=== PATIENT | male | born 1970 | race Caucasian/White ===

== ENCOUNTER 2017-10-01 02:06 | Emergency (ER) | payer BC, OTHER ==
[~2017-10-01] VITALS: Ht 190.5 cm; Wt 117.9 kg
[2017-10-01 02:15] VITALS: TEMP 36.8; Ht 190.5 cm; Wt 117.9 kg
[2017-10-01] MEDS ORDERED: OXCA300T PO (02:40)
[2017-10-01] MEDS ORDERED: EFAVTAB PO (03:07)
[2017-10-01 03:19] LABS: BASO % 0.5 %; BASO ABS # 0.03 K/uL (0-0.2); COMPLETE YES; HEMATOCRIT 42.9 % (42-52); IG% 0.2 %; LYMPH % 22.9 %; LYMPH ABS # 1.37 K/uL (1.2-3.4); MEAN CELL VOLUME 91.9 fL (80-100); MEAN CORPUSCULAR HEMOGLOBIN 32.5 pg (25-34); MEAN CORPUSCULAR HGB CONC 35.4 g/dl (32-36); MEAN PLATELET VOLUME 11.1 fL (7.4-10.4); MONO % 12.5 %; NEUT % 62.9 %; PLATELET COUNT 129 K/uL (130-400); RED BLOOD COUNT 4.67 M/uL (4.7-6.1); WHITE BLOOD COUNT 5.98 K/uL (4.8-10.8)
[2017-10-01 03:43] LABS: ALT/SGPT 79 U/L (12-78); AST/SGOT 54 U/L (15-37); BLOOD UREA NITROGEN 13 mg/dl (7-18); BUN/CREATININE RATIO 10.2 (10-20); CALCIUM 8.5 mg/dl (8.5-10.1); CARBON DIOXIDE 23 mmol/L (21-32); CHLORIDE 105 mmol/L (98-107); CREATININE 1.26 mg/dl (0.60-1.40); GLUCOSE 122 mg/dl (70-99); POTASSIUM 3.6 mmol/L (3.5-5.1); SODIUM 135 mmol/L (136-145)
[2017-10-01 03:48] LABS: ALB/GLOB RATIO 0.8 (0.9-2); ALKALINE PHOSPHATASE 58 U/L (45-117)
[2017-10-01] MEDS ORDERED: KETOROLAC TROMETHAMINE 30 MG/ML VIAL IV STA (06:09)
[2017-10-01] MEDS ORDERED: DICYCLOMINE HCL 20 MG TAB PO STA (06:10)
[2017-10-01] MEDS ORDERED: DICYCLOMINE HCL 10 MG CAP ONE (06:20)
--- NOTE | 2017-10-01 06:29 | EMERGENCY ROOM VISIT NOTE ---
History Report prepared by Lianne: Jaelyn Armstrong Under the Supervision of: Dr. Charla Sanders D.O. First contact with patient: 02:31 Chief Complaint: ABDOMINAL PAIN Stated Complaint: STOMACH PAIN,NO BOWEL MOVEMENT FOR A FEW DAYS Nursing Triage Summary: Patient ambulatory to triage with an upright and steady gait, states "Last weekend, I got sick with what I thought was the flu. I had fatigue and a little bit of stomach pain. I have noticed it is still hanging around. I realized, about 2 days ago, I am having a hard time going to the bathroom - both ways. I have a constant burning pain in my stomach." Patient reports nausea; vomiting last week with initial onset. Patient reports last BM was Tuesday or Tuesday of this week. No blood noted. Patient denies any blood in the urine. Patient reports a significant change in appetite. History of Present Illness The patient is a 47 year old male who presents to the Emergency Room with complaints of persistent abdominal pain starting yesterday. The pain is across his lower abdomen. The pain seems to worsen when he drinks. He has been feeling bloated when he drinks water. The patient started getting sick 1 week ago. He woke up in the middle of the night 1 week ago with vomiting. He has been feeling nauseous and fatigued. He called off work 5 days ago. He notes that he has had a decreased appetite and has not been eating very much over the past week. For the last couple of days, he has hardly been going to the bathroom. His last bowel movement was 4 days ago. He tried taking a stool softener today to no significant relief. He usually has a bowel movement daily. He noticed that his urine was dark 3-4 days ago. He has been struggling to urinate for the past 2 days. He has been getting chills intermittently. He has never had these symptoms before. He denies any fever, cough, rhinorrhea, or sore throat. He notes that he has been drinking protein shakes for the past week. He denies any other dietary changes. He denies any recent travel. He is on Atripla. He denies any medication changes. He denies any history of GI problems, heart problems, kidney problems, or abdominal surgeries. He lives alone. He denies any sick contacts. Source of History: patient Onset: yesterday Position: abdomen (lower) Quality: other (pain) Timing: other (persistent) Modifying Factors (Worsening): drinking Associated Symptoms: + nausea, + vomiting, + urinary symptoms, + fatigue, No fevers, No sorethroat, No cough Note: Pt reports bloating, decreased appetite, constipation. Pt denies rhinorrhea. Review of Systems See HPI for pertinent positives & negatives. A total of 10 systems reviewed and were otherwise negative. Past Medical & Surgical Medical Problems: (1) HIV (human immunodeficiency virus infection) Family History No pertinent family history stated. Social History Smoking Status: Never Smoker Housing Status: lives alone Occupation Status: employed Current/Historical Medications Scheduled Oigufxktu-Mlmhtheuyhfve-Xxwbsv (Atripla), 1 TAB PO HS Allergies Coded Allergies: No Known Allergies (Unverified , 10/01/17) Physical Exam Vital Signs Date Time Temp Pulse Resp B/P (MAP) Pulse Ox O2 Delivery O2 Flow Rate FiO2 10/01/17 06:42 66 18 134/90 97 10/01/17 06:26 66 18 134/90 97 Room Air 10/01/17 04:35 75 16 133/92 96 Room Air 10/01/17 02:15 36.8 92 18 131/89 95 Room Air Physical Exam GENERAL: alert, well appearing, well nourished, no distress, non-toxic EYE EXAM: normal conjunctiva, PERRL and EOM's grossly intact OROPHARYNX: no exudate, no erythema, lips, buccal mucosa, and tongue normal and mucous membranes are moist NECK: supple, no nuchal rigidity, no adenopathy, non-tender LUNGS: Clear to auscultation. Normal chest wall mechanics HEART: no murmurs, S1 normal and S2 normal ABDOMEN: abdomen soft, mild lower abdominal discomfort with palpation, normo- active bowel sounds, no masses, no organomegaly, no rebound or guarding. BACK: Back is symmetrical on inspection and there is no deformity, no midline tenderness, no CVA tenderness. SKIN: no rashes and no bruising UPPER EXTREMITIES: upper extremities are grossly normal. LOWER EXTREMITIES: No pitting edema. NEURO EXAM: Normal sensorium, cranial nerves II-XII grossly intact, normal speech, no gross weakness of arms, no gross weakness of legs. Medical Decision & Procedures ER Provider Diagnostic Interpretation: X-ray: I interpreted the following studies. Chest: A two view study of the chest was reviewed and was negative for cardiomegaly, focal infiltrate, effusion, or wide mediastinum. Abdomen: Scattered stool and air. No definite SBO. No free air. Radiology results have been interpreted by the [facility] radiologist and reviewed by me. US RUQ: Cholelithiasis. No significant gallbladder wall thickening. Normal caliber common bile duct. Negative sonographic Winslow sign. Enlarged slightly echogenic liver, possible fatty infiltration or other etiology. Pancreas not visualized. Laboratory Results 10/01/17 03:09 Red Blood Count 4.67, Mean Corpuscular Volume 91.9, Mean Corpuscular Hemoglobin 32.5, Mean Corpuscular Hemoglobin Concent 35.4, Mean Platelet Volume 11.1, Neutrophils (%) (Auto) 62.9, Lymphocytes (%) (Auto) 22.9, Monocytes (%) (Auto) 12.5, Eosinophils (%) (Auto) 1.0, Basophils (%) (Auto) 0.5, Neutrophils # (Auto ) 3.76, Lymphocytes # (Auto) 1.37, Monocytes # (Auto) 0.75, Eosinophils # (Auto ) 0.06, Basophils # (Auto) 0.03 10/01/17 03:09 Test 10/01/17 03:09 White Blood Count 5.98 K/uL (4.8-10.8) Red Blood Count 4.67 M/uL (4.7-6.1) Hemoglobin 15.2 g/dL (14.0-18.0) Hematocrit 42.9 % (42-52) Mean Corpuscular Volume 91.9 fL (80-100) Mean Corpuscular Hemoglobin 32.5 pg (25-34) Mean Corpuscular Hemoglobin Concent 35.4 g/dl (32-36) Platelet Count 129 K/uL (130-400) Mean Platelet Volume 11.1 fL (7.4-10.4) Neutrophils (%) (Auto) 62.9 % Lymphocytes (%) (Auto) 22.9 % Monocytes (%) (Auto) 12.5 % Eosinophils (%) (Auto) 1.0 % Basophils (%) (Auto) 0.5 % Neutrophils # (Auto) 3.76 K/uL (1.4-6.5) Lymphocytes # (Auto) 1.37 K/uL (1.2-3.4) Monocytes # (Auto) 0.75 K/uL (0.11-0.59) Eosinophils # (Auto) 0.06 K/uL (0-0.5) Basophils # (Auto) 0.03 K/uL (0-0.2) RDW Standard Deviation 42.7 fL (36.4-46.3) RDW Coefficient of Variation 12.6 % (11.5-14.5) Immature Granulocyte % (Auto) 0.2 % Immature Granulocyte # (Auto) 0.01 K/uL (0.00-0.02) Anion Gap 7.0 mmol/L (3-11) Est Creatinine Clear Calc Drug Dose 101.4 ml/min Estimated GFR () 78.8 Estimated GFR (Non- 68.0 BUN/Creatinine Ratio 10.2 (10-20) Lactic Acid Level 0.7 mmol/L (0.4-2.0) Calcium Level 8.5 mg/dl (8.5-10.1) Total Bilirubin 0.5 mg/dl (0.2-1) Aspartate Amino Transf (AST/SGOT) 54 U/L (15-37) Alanine Aminotransferase (ALT/SGPT) 79 U/L (12-78) Alkaline Phosphatase 58 U/L (45-117) Troponin I < 0.015 ng/ml (0-0.045) Total Protein 7.5 gm/dl (6.4-8.2) Albumin 3.3 gm/dl (3.4-5.0) Globulin 4.2 gm/dl (2.5-4.0) Albumin/Globulin Ratio 0.8 (0.9-2) Lipase 183 U/L (73-393) Laboratory results per my review. Medications Administered Medications (Trade) Dose Ordered Sig/Inessa Route Start Time Stop Time Status Last Admin Dose Admin Ketorolac Tromethamine (Toradol Inj) 30 mg NOW STAT IV 10/01/17 06:09 10/01/17 06:10 DC 10/01/17 06:23 30 MG Dicyclomine HCl (Bentyl Cap) 20 mg STK-MED ONCE .ROUTE 10/01/17 06:20 10/01/17 06:21 DC 10/01/17 06:23 20 MG ECG Indication: nausea Rate (beats per minute): 74 Rhythm: sinus rhythm Findings: T-wave inversion (lead 3), other (normal axis, normal intervals, no other acute ischemia) ED Course 0236: The patient was evaluated in room B9. A complete history and physical exam was performed. 0604: Upon reevaluation, the patient is still having some discomfort. I discussed the findings and the treatment plan with the patient. He verbalizes agreement and understanding. He will be discharged home after pain medications. 0609: Toradol Inj 30 mg IV. 0610: Bentyl Tab 20 mg PO. Medical Decision Differential diagnoses includes but is not limited to gastritis, peptic ulcer disease, GERD, gallbladder disease, pancreatitis, small bowel obstruction, acute coronary syndrome, pericarditis, ischemic bowel, irritable bowel disease, irritable bowel syndrome, appendicitis, diverticulitis, malignancy, hernia, urinary tract infection, torsion, perforation, trauma, infectious. Patient well-appearing here, was slowly improving symptoms from likely viral illness last week. Patient concern given persistence of some symptoms. Patient 's been using gace-owd-gnbuuwr medications. Labs and imaging reassuring here. Pt's symptoms improved following Toradol and Bentyl administration here. Discussed with patient close follow-up with his family doctor, symptoms to watch and return for, he verbalized understanding was agreeable with plan. I do not suspect occult bacteremia/sepsis, GI bleed, mesenteric ischemia, vascular etiology, diverticulitis, perforation, colitis, inflammatory bowel disease, or other pathology. Patient able to urinate here without difficulty and UA reassuring. Medication Reconcilliation Current Medication List: was personally reviewed by me Blood Pressure Screening Patient's blood pressure: Elevated blood pressure Blood pressure disposition: Elevated BP felt to be situational Impression Primary Impression: Abdominal pain Scribe Attestation The scribe's documentation has been prepared under my direction and personally reviewed by me in its entirety. I confirm that the note above accurately reflects all work, treatment, procedures, and medical decision making performed by me. Departure Information Dispostion Home / Self-Care Referrals No Doctor, Assigned (PCP) Patient Instructions My [facility] Additional Instructions Please try to drink clear liquids at frequent intervals to stay well-hydrated. You may eat as tolerated. You may use Tylenol or ibuprofen as needed for pain or fevers. Please: Follow up with her family doctor as a precaution and to recheck your condition and symptoms. If you have any worsening pain, develop vomiting, fevers, diarrhea, noticed blood with the bowel movement, have difficulty urinating, or you've any other new concerns, please return the emergency room. Problem Qualifiers Primary Impression: Abdominal pain Abdominal location: lower abdomen, unspecified Qualified Codes: R10.30 - Lower abdominal pain, unspecified
[2017-10-01 06:42] VITALS: BP 134/90; PULSE 66; O2SAT 97
--- NOTE | 2017-10-01 08:32 | DIAGNOSTIC IMAGING REPORT ---
ABDOMINAL ULTRASOUND, RIGHT UPPER QUADRANT HISTORY: Elevated liver function tests, abdominal pain and nausea. COMPARISON: Abdominal series October 01, 2017. FINDINGS: This exam is compromised by suboptimal penetration. The pancreas is obscured by overlying bowel gas. Gallstones were noted within the gallbladder. Gallbladder wall thickness was at the upper limits of normal. No sonographic Jones sign was elicited. There was no biliary ductal dilatation. No right hydronephrosis was present. IMPRESSION: 1. Cholelithiasis. Borderline gallbladder wall thickening with no sonographic Jones sign. 2. Obscured pancreas due to overlying bowel gas. 3. No biliary ductal dilatation. Electronically signed by: Neil Durant M.D. 10/01/2017 8:30 AM Dictated Date/Time: 10/01/2017 8:28 AM
--- NOTE | 2017-10-01 09:00 | DIAGNOSTIC IMAGING REPORT ---
PA CHEST RADIOGRAPH AND UPRIGHT AND SUPINE AP RADIOGRAPHS OF THE ABDOMEN CLINICAL HISTORY: Abdominal pain, nausea and constipation. COMPARISON STUDY: No previous studies for comparison. FINDINGS: Lung volumes are normal. No pneumothorax or pleural effusion is present. Pulmonary vascularity is normal. Cardiomediastinal silhouette is normal. There is no free air. The bowel gas pattern is normal. There is a moderate amount of stool within the colon. IMPRESSION: 1. No free air or evidence of bowel obstruction. 2. Moderate amount of stool within the colon. 3. No acute cardiopulmonary findings. Electronically signed by: Neil Durant M.D. 10/01/2017 8:59 AM Dictated Date/Time: 10/01/2017 8:57 AM
== END 2017-10-01 06:43 | disposition home or self-care (01) ==
LOC: C.EDB 02:07
DX: R10.30 Lower abdominal pain, unspecified (principal); Z21 Asymptomatic human immunodeficiency virus [HIV] infection status